=== PATIENT | female | born 1945 | race Caucasian/White ===

== ENCOUNTER 2022-03-30 02:08 | Emergency (ER) | payer MEDICAID, OTHER ==
[~2022-03-30] VITALS: Ht 162.6 cm; Wt 40.0 kg
[~2022-03-30 02:08] MED LIST: IBUP800T27 PO; QUE100T PO
[2022-03-30 02:27] VITALS: BP 167/86
[2022-03-30 03:13] LABS: Basophils # (auto) 0.1 10 ^3/uL (0-0.2); Basophils % (auto) 0.9 % (0.0-2.0); Eosinophils # (auto) 0.1 10 ^3/uL (0-0.8); Eosinophils % (auto) 2.3 % (0.0-7.0); Hematocrit 34.1 % (36.0-46.0); Hemoglobin 11.6 g/dL (12.2-16.2); Lymphocytes # (auto) 1.2 10 ^3/uL (0.4-5.4); Lymphocytes % (auto) 19.6 % (10.0-50.0); Mean Corpuscular Hemoglobin 31.6 pg (28.0-32.0); Mean Corpuscular Volume 92.8 fL (80.0-100.0); Monocytes # (auto) 0.7 10 ^3/uL (0-1.3); Monocytes % (auto) 11.3 % (0.0-12.0); Neutrophils % (auto) 65.9 % (37.0-80.0); Nucleated Red Blood Cells % 0.1 %; Red Blood Cells 3.68 10^6/uL (4.0-5.20); Red Cell Distribution Width 13.8 % (11.8-14.3)
[2022-03-30 03:18] LABS: Urine Bacteria FEW /hpf (None Seen); Urine Blood 3+ /uL (Negative); Urine Mucus FEW (None Seen); Urine WBC 1 /hpf (0 - 5)
[2022-03-30 03:28] LABS: Albumin 3.7 g/dL (3.4-5.0); BUN/Creatinine Ratio 14.1; Calcium 9.6 mg/dL (8.5-10.1); Potassium 3.8 mmol/L (3.5-5.1)
[2022-03-30 03:31] LABS: Bilirubin, Total 0.4 mg/dL (0.2-1.0); Total Protein 7.5 g/dL (6.4-8.2)
== END 2022-03-30 04:56 | disposition home or self-care (01) ==
LOC: EDBD 02:08 → EDUNIT# 02:08 → ER 02:13
DX: F03.90 Unspecified dementia, unspecified severity, without behavioral disturbance, psychotic disturbance, mood disturbance, and anxiety (principal); E78.5 Hyperlipidemia, unspecified; Z79.1 Long term (current) use of non-steroidal anti-inflammatories (NSAID); Z79.899 Other long term (current) drug therapy; Z86.73 Personal history of transient ischemic attack (TIA), and cerebral infarction without residual deficits
CPT/HCPCS: 36415; 70450; 80053; 81001; 83880; 84484; 85025; 93005

== ENCOUNTER 2022-04-12 14:14 | Inpatient (IN) | payer OTHER ==
[~2022-04-12] VITALS: Ht 157.5 cm; Wt 40.8 kg
[2022-04-12 15:09] LABS: Basophils # (auto) 0 10 ^3/uL (0-0.2); Basophils % (auto) 0.4 % (0.0-2.0); Eosinophils # (auto) 0 10 ^3/uL (0-0.8); Eosinophils % (auto) 0.3 % (0.0-7.0); Hematocrit 40.7 % (36.0-46.0); Hemoglobin 13.7 g/dL (12.2-16.2); Lymphocytes # (auto) 0.9 10 ^3/uL (0.4-5.4); Lymphocytes % (auto) 10.7 % (10.0-50.0); Mean Corpuscular Hemoglobin 31.5 pg (28.0-32.0); Mean Corpuscular Hgb Conc. 33.8 g/dL (32.0-36.0); Mean Corpuscular Volume 93.2 fL (80.0-100.0); Monocytes # (auto) 0.8 10 ^3/uL (0-1.3); Monocytes % (auto) 9.6 % (0.0-12.0); Neutrophils # (auto) 6.9 10 ^3/uL (1.6-8.6); Nucleated Red Blood Cells % 0.1 %; Red Blood Cells 4.36 10^6/uL (4.0-5.20); Red Cell Distribution Width 13.6 % (11.8-14.3); White Blood Cell 8.8 10^3/uL (4.4-10.8)
[2022-04-12 15:15] LABS: Albumin 3.5 g/dL (3.4-5.0); Anion Gap 8 (5-15); Blood Alcohol < 3.0 mg/dL (0-5); Blood Urea Nitrogen 25 mg/dL (7-18); Carbon Dioxide 25 mmol/L (21-32); Chloride 104 mmol/L (98-107); Glucose 74 mg/dL (74-106); Magnesium 1.9 mg/dL (1.6-2.6); Potassium 3.8 mmol/L (3.5-5.1); Sodium 137 mmol/L (136-145)
[2022-04-12 15:18] LABS: Alanine Aminotransferase 21 U/L (13-56); Alkaline Phosphatase 77 U/L (45-117); Aspartate Aminotransferase 26 U/L (15-37); BUN/Creatinine Ratio 31.3; Bilirubin, Total 0.5 mg/dL (0.2-1.0); GFR African American 89 mL/min; GFR Non-African American 74 mL/min; Total Protein 8.4 g/dL (6.4-8.2)
[2022-04-12 15:24] LABS: INR 1.04 (0.9-1.15); Partial Thromboplastin Time 23.9 sec (24.6-33.4)
[2022-04-12] MEDS ORDERED: IOHEXOL 300 MG/ML 100ML BOTTLE IJ ONE (16:43)
[2022-04-12] MEDS ORDERED: ASPirin 81 mg TAB PO ONE (17:15)
[2022-04-12] MEDS ORDERED: ONDANSETRON HCL 4 MG/2 ML VIAL IV PRN (18:30)
[2022-04-12] MEDS ORDERED: NITROGLYCERIN 0.4 MG SL TAB SL PRN (18:30)
[2022-04-12] MEDS ORDERED: HYDROmorphone HCL 2 MG/ML VL/or syr IV PRN (18:30)
[2022-04-12] MEDS ORDERED: MORPHINE SULFATE INJ 2 MG/ml SYRG IV PRN (18:30)
[2022-04-12] MEDS: HEPARIN SODIUM (PORCINE) 5000 UNITS/ML 1ML VIAL SC SCH (18:58)
[2022-04-12] MEDS: hydrALAZINE HCL 20 MG/ML VL IV PRN (21:07)
[2022-04-12] MEDS: SODIUM CHLOR 0.9% PF (SALINE LOCK) 10ML VIAL/SYR IV SCH (23:13)
[2022-04-13] MEDS: HEPARIN SODIUM (PORCINE) 5000 UNITS/ML 1ML VIAL SC SCH ×3 (04:47→20:42)
[2022-04-13] MEDS: hydrALAZINE HCL 20 MG/ML VL IV PRN (06:07)
[2022-04-13] MEDS: SODIUM CHLOR 0.9% PF (SALINE LOCK) 10ML VIAL/SYR IV SCH ×3 (06:08→22:04)
[2022-04-13 06:30] LABS: Urine Bacteria NONE SEEN /hpf (None Seen); Urine Blood 2+ /uL (Negative); Urine Mucus FEW (None Seen); Urine Specific Gravity 1.022 (1.001-1.035); Urine WBC <1 /hpf (0 - 5)
[2022-04-13 06:39] LABS: Alcohol, Urine < 3.0 mg/dL (0-10); Amphetamine Screen, Urine NEGATIVE (NEGATIVE); Barbiturate Scree,Urine NEGATIVE (NEGATIVE); Benzodiazephine Screen, Urine NEGATIVE (NEGATIVE); Cannabinoid Screen, Urine NEGATIVE (NEGATIVE); Cocaine Screen, Urine NEGATIVE (NEGATIVE); Opiate Scree,Urine NEGATIVE (NEGATIVE); Phencyclidine Screen, Urine NEGATIVE (NEGATIVE)
[2022-04-13] MEDS: FAMOTIDINE 20 MG TAB PO SCH (11:31)
[2022-04-13] MEDS ORDERED: ASPirin 81 mg TAB PO ONE (14:00)
[2022-04-13 22:47] VITALS: BP 96/69
[2022-04-13] MEDS ORDERED: DIPH2.5T73 PO (23:05)
[2022-04-13] MEDS ORDERED: ATOR10TA52 PO (23:05)
[2022-04-13] MEDS ORDERED: CHOL50007 PO (23:05)
[2022-04-13] MEDS ORDERED: MEGE1SUS5 PO (23:05)
[2022-04-14] MEDS: HEPARIN SODIUM (PORCINE) 5000 UNITS/ML 1ML VIAL SC SCH ×3 (02:42→19:06)
[2022-04-14 05:00] VITALS: BP 167/76
[2022-04-14] MEDS: hydrALAZINE HCL 20 MG/ML VL IV PRN (05:04)
[2022-04-14] MEDS: SODIUM CHLOR 0.9% PF (SALINE LOCK) 10ML VIAL/SYR IV SCH ×3 (05:49→22:57)
[2022-04-14 05:52] LABS: Cholesterol 114 mg/dL (< 200); HDL Cholesterol 41 mg/dL (40-59); LDL Cholesterol 73 mg/dL (< 100); Triglycerides 59 mg/dL (< 150)
[2022-04-14 08:05] VITALS: BP 148/69
[2022-04-14 09:01] LABS: Folate (Folic Acid) > 24.00 ng/mL (5.38-24)
[2022-04-14] MEDS: FAMOTIDINE 20 MG TAB PO SCH (11:16)
[2022-04-14] MEDS: ASPirin 81 mg TAB PO SCH (11:16)
[2022-04-14] MEDS: METOPROLOL TARTRATE 25 MG TAB PO SCH ×2 (11:17→22:57)
[2022-04-14 12:30] VITALS: BP 157/63
[2022-04-14 16:15] VITALS: BP 144/77
[2022-04-14] MEDS ORDERED: LORazepam 2MG/ML-1ML VIAL IV PRN (20:45)
[2022-04-14] MEDS ORDERED: HALOPERIDOL LACTATE 5 MG/ML INJ VIAL IM PRN (20:45)
[2022-04-14 22:00] VITALS: BP 134/72
[2022-04-15] MEDS: HEPARIN SODIUM (PORCINE) 5000 UNITS/ML 1ML VIAL SC SCH ×2 (02:45→12:24)
[2022-04-15 05:00] VITALS: BP 156/51
[2022-04-15] MEDS: SODIUM CHLOR 0.9% PF (SALINE LOCK) 10ML VIAL/SYR IV SCH ×2 (06:00→18:06)
[2022-04-15 06:19] VITALS: BP 133/70
[2022-04-15 07:06] LABS: RPR Non Reactive (Non Reactive)
[2022-04-15 08:49] VITALS: BP 105/43
[2022-04-15] MEDS: FAMOTIDINE 20 MG TAB PO SCH (09:07)
[2022-04-15] MEDS: ASPirin 81 mg TAB PO SCH (09:07)
[2022-04-15] MEDS: METOPROLOL TARTRATE 25 MG TAB PO SCH (09:08)
[2022-04-15 12:43] VITALS: BP 121/61
[2022-04-15] MEDS: SODIUM CHLORIDE 0.9% 1,000 ML IV SCH (18:56)
[2022-04-15 22:00] VITALS: BP 138/84
[2022-04-16] VITALS (7 sets, daily range): BP systolic 110–178; BP diastolic 69–96
[2022-04-16] MEDS: SODIUM CHLOR 0.9% PF (SALINE LOCK) 10ML VIAL/SYR IV SCH ×4 (00:24→22:00)
[2022-04-16] MEDS: METOPROLOL TARTRATE 25 MG TAB PO SCH ×3 (00:24→23:48)
[2022-04-16] MEDS: hydrALAZINE HCL 20 MG/ML VL IV PRN ×2 (06:33→16:10)
[2022-04-16 07:36] LABS: Urine Bacteria NONE SEEN /hpf (None Seen); Urine WBC 747 /hpf (0 - 5); Urine WBC Clumps PRESENT /hpf (None Seen)
[2022-04-16 08:11] LABS: Urine Specific Gravity 1.015 (1.001-1.035)
[2022-04-16 08:12] LABS: Urine Blood 3+ /uL (Negative)
[2022-04-16] MEDS: ASPirin 81 mg TAB PO SCH (09:08)
[2022-04-16] MEDS: DOCUSATE SOD 100 MG CAP PO PRN (10:26)
[2022-04-16] MEDS: SODIUM CHLORIDE 0.9% 1,000 ML IV SCH ×2 (10:27→21:25)
[2022-04-16] MEDS ORDERED: LORazepam 2MG/ML-1ML VIAL IV ONE (11:00)
[2022-04-16] MEDS ORDERED: LACTULOSE 20Gm/30ML SOLN PO ONE (11:00)
[2022-04-16] MEDS: HYDROcodone-ACET 5/325MG TAB PO PRN (15:54)
[2022-04-17] MEDS: SODIUM CHLORIDE 0.9% 1,000 ML IV SCH (03:28)
[2022-04-17 05:00] VITALS: BP 128/69
[2022-04-17 06:10] LABS: Basophils # (auto) 0 10 ^3/uL (0-0.2); Basophils % (auto) 0.4 % (0.0-2.0); Eosinophils # (auto) 0.3 10 ^3/uL (0-0.8); Eosinophils % (auto) 4.2 % (0.0-7.0); Hematocrit 34.3 % (36.0-46.0); Hemoglobin 11.7 g/dL (12.2-16.2); Lymphocytes % (auto) 14.5 % (10.0-50.0); Mean Corpuscular Hemoglobin 32.1 pg (28.0-32.0); Mean Corpuscular Hgb Conc. 34.2 g/dL (32.0-36.0); Mean Corpuscular Volume 93.9 fL (80.0-100.0); Monocytes # (auto) 0.6 10 ^3/uL (0-1.3); Monocytes % (auto) 9.3 % (0.0-12.0); Neutrophils % (auto) 71.6 % (37.0-80.0); Nucleated Red Blood Cells % 0.1 %; Red Blood Cells 3.65 10^6/uL (4.0-5.20); Red Cell Distribution Width 13.4 % (11.8-14.3)
[2022-04-17 06:26] LABS: Potassium 3.5 mmol/L (3.5-5.1)
[2022-04-17 06:30] LABS: BUN/Creatinine Ratio 39.4
[2022-04-17 09:02] VITALS: BP 164/81
[2022-04-17] MEDS ORDERED: cefTRIAXone 1GM/50ML D5W 50 ML IV ONE (09:45)
[2022-04-17] MEDS ORDERED: LACTULOSE 20Gm/30ML SOLN PO ONE (09:45)
[2022-04-17] MEDS: METOPROLOL TARTRATE 25 MG TAB PO SCH ×2 (09:50→22:16)
[2022-04-17 13:00] VITALS: BP 153/84
[2022-04-17] MEDS: SODIUM CHLOR 0.9% PF (SALINE LOCK) 10ML VIAL/SYR IV SCH ×2 (14:00→22:10)
[2022-04-17] MEDS: ACETAMINOPHEN 325 MG TAB PO PRN (15:30)
[2022-04-17] MEDS: hydrALAZINE HCL 20 MG/ML VL IV PRN (17:20)
[2022-04-17 17:29] VITALS: BP 181/101
[2022-04-17 22:00] VITALS: BP 126/57
[2022-04-18] MEDS: SODIUM CHLORIDE 0.9% 1,000 ML IV SCH ×2 (00:05→13:55)
[2022-04-18 05:00] VITALS: BP 174/93
[2022-04-18] MEDS: hydrALAZINE HCL 20 MG/ML VL IV PRN ×2 (05:19→22:53)
[2022-04-18] MEDS: SODIUM CHLOR 0.9% PF (SALINE LOCK) 10ML VIAL/SYR IV SCH ×3 (05:52→21:51)
[2022-04-18 06:20] VITALS: BP 126/83
[2022-04-18] MEDS: METOPROLOL TARTRATE 25 MG TAB PO SCH ×2 (09:09→21:49)
[2022-04-18] MEDS: ACETAMINOPHEN 325 MG TAB PO PRN (09:10)
[2022-04-18] MEDS: cefTRIAXone 1GM/50ML D5W 50 ML IV SCH (09:10)
[2022-04-18 09:13] VITALS: BP 138/78
[2022-04-18 12:50] VITALS: BP 158/87
[2022-04-18 17:12] VITALS: BP 158/83
[2022-04-18 22:00] VITALS: BP 186/110
[2022-04-19] VITALS (8 sets, daily range): BP systolic 125–210; BP diastolic 65–133
[2022-04-19] MEDS: HYDROcodone-ACET 5/325MG TAB PO PRN ×3 (01:00→19:42)
[2022-04-19] MEDS: SODIUM CHLORIDE 0.9% 1,000 ML IV SCH (03:51)
[2022-04-19] MEDS: SODIUM CHLOR 0.9% PF (SALINE LOCK) 10ML VIAL/SYR IV SCH ×3 (05:46→22:15)
[2022-04-19 06:05] LABS: Calcium 9.2 mg/dL (8.5-10.1)
[2022-04-19 06:09] LABS: BUN/Creatinine Ratio 37.7
[2022-04-19] MEDS: cefTRIAXone 1GM/50ML D5W 50 ML IV SCH (11:31)
[2022-04-19] MEDS: METOPROLOL TARTRATE 25 MG TAB PO SCH ×2 (11:32→22:16)
[2022-04-19] MEDS ORDERED: CIPR-173 PO (11:36)
[2022-04-19] MEDS ORDERED: LACTULOSE 20Gm/30ML SOLN PO ONE (11:45)
[2022-04-19] MEDS ORDERED: FLEET ENEMA(ADULT) 135 ML PR ONE (11:45)
[2022-04-19] MEDS: DOCUSATE SOD 100 MG CAP PO PRN (19:41)
[2022-04-19] MEDS: hydrALAZINE HCL 20 MG/ML VL IV PRN (22:14)
[2022-04-20 05:00] VITALS: BP 123/71
[2022-04-20] MEDS: SODIUM CHLOR 0.9% PF (SALINE LOCK) 10ML VIAL/SYR IV SCH ×2 (05:32→17:26)
[2022-04-20 07:34] LABS: BUN/Creatinine Ratio 43.9; Calcium 9.3 mg/dL (8.5-10.1); Magnesium 1.8 mg/dL (1.6-2.6); Potassium 3.1 mmol/L (3.5-5.1)
[2022-04-20 09:00] VITALS: BP 146/60
[2022-04-20] MEDS: cefTRIAXone 1GM/50ML D5W 50 ML IV SCH (09:37)
[2022-04-20] MEDS: METOPROLOL TARTRATE 25 MG TAB PO SCH (09:37)
[2022-04-20 13:16] VITALS: BP 145/72
[2022-04-20 17:29] VITALS: BP 145/72
[2022-04-20 17:47] VITALS: BP 149/68
== END 2022-04-20 19:00 | disposition home health service (06) | DRG 71 ==
LOC: ER 14:14 → TELE 18:26 → TELE-CENTR 04-13 22:23
PROVIDERS: ADMIT Internal Medicine; ATTEND Internal Medicine Geriatric Medicine
DX: G93.41 Metabolic encephalopathy (principal); N39.0 Urinary tract infection, site not specified; E78.5 Hyperlipidemia, unspecified; K59.00 Constipation, unspecified; F32.A Depression, unspecified; M19.90 Unspecified osteoarthritis, unspecified site; R31.9 Hematuria, unspecified; R54 Age-related physical debility; R77.8 Other specified abnormalities of plasma proteins; R91.1 Solitary pulmonary nodule; Z20.822 Contact with and (suspected) exposure to COVID-19; I10 Essential (primary) hypertension; F01.50 Vascular dementia, unspecified severity, without behavioral disturbance, psychotic disturbance, mood disturbance, and anxiety; G30.9 Alzheimer's disease, unspecified; F02.80 Dementia in other diseases classified elsewhere, unspecified severity, without behavioral disturbance, psychotic disturbance, mood disturbance, and anxiety; Z83.3 Family history of diabetes mellitus; Z86.73 Personal history of transient ischemic attack (TIA), and cerebral infarction without residual deficits; Z79.899 Other long term (current) drug therapy; Z79.82 Long term (current) use of aspirin
CPT/HCPCS: 36415; 70450; 71045; 74018; 80048; 80053; 80061; 80307; 80320; 81001; 82607; 82746; 83605; 83735; 84443; 84484; 85025; 85610; 85730; 86592; 87040; 87081; 87086; 87088; 87186; 87426; 93005; 93306; 93886; 95819; 96374; 97110; 97116; G0378; J0696

== ENCOUNTER 2022-05-10 02:36 | Emergency (ER) | payer OTHER ==
[~2022-05-10] VITALS: Ht 152.4 cm; Wt 70.0 kg
[~2022-05-10 02:36] MED LIST changes: +ATOR10TA52 PO; +CHOL50007 PO; +CIPR-173 PO; +DIPH2.5T73 PO; +MEGE1SUS5 PO
[2022-05-10 05:00] VITALS: BP 171/103
[2022-05-10] MEDS ORDERED: ACETAMINOPHEN 325 MG TAB PO ONE (05:45)
== END 2022-05-11 07:35 | disposition home or self-care (01) ==
LOC: EDUNIT# 02:36 → EDBD 02:36 → ER 02:36
DX: M25.562 Pain in left knee (principal); E78.5 Hyperlipidemia, unspecified; Z86.73 Personal history of transient ischemic attack (TIA), and cerebral infarction without residual deficits; Z79.1 Long term (current) use of non-steroidal anti-inflammatories (NSAID); Z79.2 Long term (current) use of antibiotics; Z79.899 Other long term (current) drug therapy; W18.39XA Other fall on same level, initial encounter; Y93.89 Activity, other specified; Y92.89 Other specified places as the place of occurrence of the external cause; Y99.8 Other external cause status
CPT/HCPCS: 73562; 93005